=== PATIENT | female | born 1950 | race Caucasian/White ===

== ENCOUNTER 2020-10-06 11:16 | Emergency (ER) | payer OTHER, MEDICARE ==
[2020-10-06] MEDS ORDERED: HYDROCODON-ACE1 EAC2 PO (15:14)
[2020-10-06] MEDS ORDERED: CEPHALEXIN500 MG PO (15:14)
== END 2020-10-06 15:31 | disposition home or self-care (01) ==
LOC: FER 11:16
DX: S62.652A Nondisplaced fracture of middle phalanx of right middle finger, initial encounter for closed fracture (principal); S62.642A Nondisplaced fracture of proximal phalanx of right middle finger, initial encounter for closed fracture; Z23 Encounter for immunization; V40.6XXA Car passenger injured in collision with pedestrian or animal in traffic accident, initial encounter; Y92.410 Unspecified street and highway as the place of occurrence of the external cause
CPT/HCPCS: 73130; 90471; 90715; 96372; J0690; J1885